=== PATIENT | male | born 1990 | race Caucasian/White ===

== ENCOUNTER 2017-07-10 10:21 | Emergency (ER) | payer OTHER, MEDICAID ==
[2017-07-10 10:35] VITALS: BP 130/81; PULSE 123; RESP 16; O2SAT 93
--- NOTE | 2017-07-10 11:10 | EDPHY ---
H & P Stated Complaint: was at [facility] for med adjustment this am, staff gave pt anx Time Seen by Provider: 07/10/17 11:02 HPI/ROS: CHIEF COMPLAINT: Detox, withdrawal symptoms HISTORY OF PRESENT ILLNESS: This patient is a 26 year old male with history of alcoholism arriving with his mother complaining of alcohol withdrawal symptoms worsening since this morning. He has been drinking heavily for about one year and usually takes 15-18 shots per day throughout the day. He is interested in outpatient rehabilitation and is seen at mental [facility] and has an appointment with addiction specialists next week. He was instructed to decrease by 1/2 shot per day every three days, but he did not want to be drunk for his appointment today, so his last drink was at 5am this morning. Currently, he feels lightheaded and "out of it" and is beginning to feel shaky. He has never been through detox before. He has history of seizures but has not had any seizure activity today. He denies chest pain, shortness of breath, fever, abdominal pain, urinary complaints, or other associated symptoms. REVIEW OF SYSTEMS: A 10 point review of systems was performed and is negative with the exception of the elements mentioned in the history of present illness. - Medical/Surgical History PMH: Alcoholism, seizures, bipolar, schizophrenia. Hx Asthma: No Hx Chronic Respiratory Disease: No Hx Diabetes: No Hx Cardiac Disease: No Hx Renal Disease: No Hx Cirrhosis: No Hx Alcoholism: No Hx HIV/AIDS: No Hx Splenectomy or Spleen Trauma: No Other PMH: pmh:ethism, sichophrenia, bipolar, seizures. psh: - Social History Additional Social History: Mother at bedside. Daily alcohol use. Lives in [place]. - Physical Exam Exam: General Appearance: Alert, no distress Eyes: Pupils equal and round, no conjunctival pallor or injection ENT, Mouth: Mucous membranes moist Neck: Normal inspection Respiratory: Lungs are clear to auscultation Cardiovascular: Regular tachycardia Gastrointestinal: Abdomen is soft and non- tender Neurological: A&O, normal gait, mild resting tremor Skin: Warm and dry, no rash Extremities: Nontender, no pedal edema Psychiatric: Mood and affect normal Constitutional: Initial Vital Signs Heart Rate 123 H 07/10/17 10:24 Respiratory Rate 16 07/10/17 10:24 Blood Pressure 130/81 H 07/10/17 10:24 O2 Sat (%) 93 07/10/17 10:24 O2 Delivery Mode Room Air Allergies/Adverse Reactions: No Known Allergies Allergy (Unverified 06/22/12 15:05) Home Medications: Medication Instructions Recorded Medical Marijuana 05/14/11 Topiramate [Topamax] 50 mg PO BID 05/14/11 OLANZAPINE [ZYPREXA 20 mg] 10 mg PO HS 06/22/12 Ondansetron Odt [Zofran Odt 4 mg 4 mg PO Q4PRN PRN #7 tab 06/22/12 (*)] lamOTRIGine [LamICTAL] 25 mg PO .DAY 06/22/12 Medical Decision Making ED Course/Re-evaluation: 26 y/o male presents with alcohol withdrawal. He is not interested in going to the [facility], and his primary concern today is his withdrawal symptoms. He is comfortable with following a slow taper to decrease his alcohol intake as recommended by [facility]. His mother is at bedside and they are comfortable with him returning to her house after discharge. He plans to continue drinking alcohol as instructed and follow up for his appointment next week to discuss outpatient rehabilitation. Plan to administer 2mg PO Ativan for symptom relief. Plan to discharge home in good condition. He will follow up as discussed above. Return precautions discussed. The patient and his mother are comfortable with this plan. Differential Diagnosis: Differential diagnosis includes but not limited to alcoholic ketoacidosis, delirium tremens, hypoglycemia, dehydration. - Data Points Medications Given: Discontinued Medications Lorazepam (Ativan) 2 mg PO EDNOW ONE Stop: 07/10/17 11:23 Last Admin: 07/10/17 11:35 Dose: 2 mg Departure - Departure Disposition: Home, Routine, Self-Care Clinical Impression: Alcohol withdrawal Qualifiers: Complication of substance-induced condition: uncomplicated Qualified Code(s): F10.230 - Alcohol dependence with withdrawal, uncomplicated Condition: Good Instructions: Alcohol Withdrawal (ED) Additional Instructions: 1. Gradually taper your alcohol intake as previously discussed. 2. Consider following up at the [facility] if desired for assistance in detox prior to your appointment next week. 3. Follow up for your appointment next week as scheduled to discuss outpatient rehabilitation options. 4. Return to the emergency department for seizure, hallucinations, uncontrollable vomiting, or other worsening of condition. Referrals: [facility] [Clinic] - As per Instructions [facility] Detox 24 Hours [Outside] - As per Instructions Report Scribed for: Digna Fermin Report Scribed by: Michelle Schilling Date of Report: 07/10/17 Time of Report: 11:04 Physician Review and Approval Statement: 07/10/17 11:04 Portions of this note were transcribed by a medical affairs manager. I personally performed a history, physical exam, medical decision making, and confirmed accuracy of information the transcribed note.
[2017-07-10] MEDS ORDERED: LORazepam 1 MG TAB PO ONE (11:22)
== END 2017-07-10 12:02 | disposition home or self-care (01) ==
LOC: EDUNIT#
DX: F10.230 Alcohol dependence with withdrawal, uncomplicated (principal)

== ENCOUNTER → 2017-11-20 | Outpatient (CLI) | payer OTHER, MEDICAID | LOC: FIMAGING 12:19 | PROVIDERS: ATTEND Family Medicine Sports Medicine | DX: M25.512 Pain in left shoulder (principal) ==

== ENCOUNTER 2018-03-26 21:11 | Inpatient (IN) | payer OTHER, MEDICAID ==
[2018-03-26] MEDS ORDERED: chlordiazePOXIDE 25 MG CAP ONE (22:18)
[2018-03-26] MEDS ORDERED: LORazepam 1 MG TAB ONE (22:19)
[2018-03-26] MEDS ORDERED: LORazepam 1 MG TAB PO ONE (22:21)
[2018-03-26] MEDS ORDERED: chlordiazePOXIDE 25 MG CAP PO ONE (22:21)
--- NOTE | 2018-03-26 22:22 | EDPHY ---
H & P Stated Complaint: etoh withdrawl, last drink today, anxiety Time Seen by Provider: 03/26/18 22:25 HPI/ROS: HPI CHIEF COMPLAINT: Alcohol withdrawal HISTORY OF PRESENT ILLNESS: This is a 27-year-old male, he has a history of bipolar disorder schizoaffective disorder, daily alcohol use up to 16 shots of vodka per day, additionally anxiety disorder, presents emergency room and alcohol draw. He states his last drink was early this morning but he did take 2 shots of vodka 2:00 p.m. Close he was feeling as if he is going through withdrawal. He is brought to the emergency room by his parents at bedside. He presents stating that he feels very tremulous, is noted that he is tachycardic upon arrival. He is not hallucinating. He denies wanting to hurt himself or anybody else. He denies seeing or hearing anything. He states he feels anxious. Past Medical History: History bipolar disorder, schizoaffective disorder, alcoholism, anxiety disorder Past Surgical History: No recent surgery Social History: Daily alcohol use up to 16 shots of vodka. Family History: Noncontributory ROS REVIEW OF SYSTEMS: A comprehensive 10 point review of systems is otherwise negative aside from elements mentioned in the history of present illness. Exam Constitutional appears nontoxic in no acute distress however noted to be tachycardic at triage triage nursing summary reviewed, vital signs reviewed, awake/alert. Eyes normal conjunctivae and sclera, EOMI, PERRLA. HENT normal inspection, atraumatic, moist mucus membranes, no epistaxis, neck supple/ no meningismus, no raccoon eyes. Respiratory clear to auscultation bilaterally, normal breath sounds, no respiratory distress, no wheezing. Cardiovascular tachycardia, regular rhythm, no murmur, no edema, distal pulses normal. Gastrointestinal soft, non-tender, no rebound, no guarding, normal bowel sounds, no distension, no pulsatile mass. Genitourinary no CVA tenderness. Musculoskeletal no midline vertebral tenderness, full range of motion, no calf swelling, no tenderness of extremities, no meningismus, good pulses, neurovascularly intact. Skin pink, warm, & dry, no rash, skin atraumatic. Neurologic slight tremulous with full extension of the arms, no tongue fasciculations on exam, awake, alert and oriented x 3, AAOx3, moves all 4 extremities equally, motor intact, sensory intact, CN II-XII intact, normal cerebellar, normal vision, normal speech. Psychiatric normal mood/affect. Heme/Lymph/Immune no lymphadenopathy. Differential Diagnosis: Includes but is not limited to in a particular order alcohol withdrawal, electrolyte disturbance, dehydration, anxiety, delirium tremens Medical Decision Making: Plan for this patient IV establishment with IV fluid bolus, basic blood work, p.o. Librium 50 mg, Ativan as needed. CIWA score. Re-evaluation: 2302: Patient re-evaluate still tachycardic at 130s. However feels better after p. O. Ativan and p.o. Librium. Will give 2 mg IV Ativan reassess. 0110: Re-evaluation, patient still tremulous, I did ambulate him and he is very globally shaky. Heart rate noted be in the 130s to 140s. I do not feel safe allowing this patient to go home. At this point do not taking go to detox. I think he will probably need to be admitted for alcohol withdrawal. Spoke with Dr. Vann agrees to admit to SDU. EKG interpretation by me on record in [employer] system. Impression time of EKG 1:16 a.m., sinus tachycardia rate of 128 no signs of acute ischemia no signs of cardiac arrhythmia. Critical Care: Total Critical Care Time Spent Managing this Patient: 80 Minutes. This time was spent Exclusively with this patient. This Care was exclusive of procedures. The Organ System/life at risk was Cardiac, Neurological This Patient was in Critical Condition because Alcohol Withdrawl. Source: Patient - Personal History Current Tetanus/Diphtheria Vaccine: Yes - Medical/Surgical History Hx Asthma: No Hx Chronic Respiratory Disease: No Hx Diabetes: No Hx Cardiac Disease: No Hx Renal Disease: No Hx Cirrhosis: No Hx Alcoholism: No Hx HIV/AIDS: No Hx Splenectomy or Spleen Trauma: No Other PMH: pmh:ethism, sichophrenia, bipolar, seizures, etoh. psh: - Social History Smoking Status: Current every day smoker Constitutional: Initial Vital Signs Temperature (C) 36.8 C 03/26/18 21:36 Heart Rate 140 H 03/26/18 21:36 Respiratory Rate 20 03/26/18 21:36 Blood Pressure 131/69 H 03/26/18 21:36 O2 Sat (%) 97 07/11/18 21:36 O2 Delivery Mode Room Air O2 (L/minute) 2 Allergies/Adverse Reactions: olanzapine [From Zyprexa] Allergy (Verified 03/26/18 21:33) Home Medications: Medication Instructions Recorded Topiramate [Topamax] 50 mg PO BID 05/14/11 Buspar (*) 03/26/18 Gabapentin 03/26/18 Librium 25 mg (*) 03/26/18 Seroquel 03/26/18 Seroquel 03/26/18 Topamax 03/26/18 Medical Decision Making - Data Points Laboratory Results: Laboratory Results 03/26/18 22:10 03/26/18 22:10 03/26/18 03/26/18 03/26/18 22:10 22:10 22:10 WBC 8.59 10^3/uL 10^3/uL (3.80-9.50) RBC 4.69 10^6/uL 10^6/uL (4.40-6.38) Hgb 15.4 g/dL g/dL (13.7-17.5) Hct 42.1 % % (40.0-51.0) MCV 89.8 fL fL (81.5-99.8) MCH 32.8 pg pg (27.9-34.1) MCHC 36.6 g/dL g/dL (32.4-36.7) RDW 13.5 % % (11.5-15.2) Plt Count 144 10^3/uL L 10^3/uL (150-400) MPV 10.0 fL fL (8.7-11.7) Neut % (Auto) 60.5 % % (39.3-74.2) Lymph % (Auto) 27.4 % % (15.0-45.0) [place] % (Auto) 10.9 % % (4.5-13.0) Eos % (Auto) 0.7 % % (0.6-7.6) Baso % (Auto) 0.2 % L % (0.3-1.7) Nucleat RBC Rel Count 0.0 % % (0.0-0.2) Absolute Neuts (auto) 5.19 10^3/uL 10^3/uL (1.70-6.50) Absolute Lymphs (auto) 2.35 10^3/uL 10^3/uL (1.00-3.00) Absolute Monos (auto) 0.94 10^3/uL H 10^3/uL (0.30-0.80) Absolute Eos (auto) 0.06 10^3/uL 10^3/uL (0.03-0.40) Absolute Basos (auto) 0.02 10^3/uL 10^3/uL (0.02-0.10) Absolute Nucleated RBC 0.00 10^3/uL 10^3/uL (0-0.01) Immature Gran % 0.3 % % (0.0-1.1) Immature Gran # 0.03 10^3/uL 10^3/uL (0.00-0.10) Sodium 135 mEq/L mEq/L (135-145) Potassium 3.3 mEq/L mEq/L (3.3-5.0) Chloride 103 mEq/L mEq/L (97-110) Carbon Dioxide 19 mEq/l L mEq/l (22-31) Anion Gap 13 mEq/L mEq/L (8-16) BUN 11 mg/dL mg/dL (7-23) Creatinine 0.8 mg/dL mg/dL (0.7-1.3) Estimated GFR > 60 Glucose 123 mg/dL H mg/dL (70-100) Calcium 9.7 mg/dL mg/dL (8.5-10.4) Magnesium 1.9 mg/dL mg/dL (1.6-2.3) Medications Given: Discontinued Medications Chlordiazepoxide HCl (Librium) 50 mg PO EDNOW ONE Stop: 03/26/18 22:22 Last Admin: 03/26/18 22:23 Dose: 50 mg Sodium Chloride (Ns) 1,000 mls @ 0 mls/hr IV ONCE ONE; Wide Open PRN Reason: Protocol Stop: 03/26/18 22:24 Last Admin: 03/26/18 22:24 Dose: 1,000 mls Sodium Chloride (Ns) 1,000 mls @ 0 mls/hr IV EDNOW ONE; Wide Open PRN Reason: Protocol Stop: 03/26/18 22:25 Last Admin: 03/26/18 22:46 Dose: 1,000 mls Lorazepam (Ativan) 1 mg PO EDNOW ONE Stop: 03/26/18 22:22 Last Admin: 03/26/18 22:23 Dose: 1 mg Lorazepam (Ativan Injection) 2 mg IVP EDNOW ONE Stop: 03/26/18 23:03 Last Admin: 03/26/18 23:24 Dose: 2 mg Lorazepam (Ativan Injection) 1 mg IVP EDNOW ONE Stop: 03/27/18 01:11 Last Admin: 03/27/18 01:30 Dose: Not Given Lorazepam (Ativan Injection) 1 mg IVP EDNOW ONE Stop: 03/27/18 01:13 Last Admin: 03/27/18 01:30 Dose: Not Given Lorazepam (Ativan Injection) 2 mg IVP EDNOW ONE Stop: 03/27/18 01:22 Last Admin: 03/27/18 01:26 Dose: 2 mg Departure - Departure Disposition: [facility] Clinical Impression: Alcohol withdrawal Qualifiers: Complication of substance-induced condition: uncomplicated Qualified Code(s): F10.230 - Alcohol dependence with withdrawal, uncomplicated Condition: Good
[2018-03-26] MEDS ORDERED: NS 1,000 ML IV ONE ×2 (22:23→22:24)
[2018-03-26 22:34] LABS: PLATELET COUNT 144 10^3/uL (150-400)
[2018-03-26] MEDS ORDERED: LORazepam 2 MG/ML INJ IVP ONE (23:02)
[2018-03-27] MEDS ORDERED: LORazepam 2 MG/ML INJ IVP ONE ×5 (01:10→03:23)
--- NOTE | 2018-03-27 01:18 | CPEKG ---
Heart Rate: 128 RR Interval: 469 P-R Interval: 144 QRSD Interval: 92 QT Interval: 316 QTC Interval: 461 P [place]: 51 QRS [place]: 80 T Wave [place]: 6 EKG Severity - BORDERLINE ECG - EKG Impression: SINUS TACHYCARDIA EKG Impression: INFERIOR Q WAVES, PROBABLY NORMAL VARIATION Electronically Signed By: Adam Kruger 27-Mar-2018 07:33:00
[2018-03-27] MEDS ORDERED: LORazepam 2 MG/ML INJ ONE (03:24)
[2018-03-27] MEDS ORDERED: ONDANSETRON 4 MG/2 ML VIAL IVP PRN (03:25)
[2018-03-27] MEDS ORDERED: ACETAMINOPHEN 325 MG TAB PO PRN (03:25)
[2018-03-27] MEDS ORDERED: NS 1,000 ML IV SCH (03:30)
--- NOTE | 2018-03-27 04:03 | PDGENHP ---
History and Physical - Chief Complaint Tremors, withdrawal - History of Present Illness Source-patient provides history appears reliable EMR was reviewed and case discussed with ED provider. HPI-this is a pleasant 27-year-old gentleman with past medical history significant for bipolar disorder, schizoaffective disorder, alcohol dependence who presents to the emergency department today with his parents with concerns for alcohol withdrawal. Patient reports that he has been working with his provider on on a withdrawal treatment plan with use of p.r.n. Librium. Patient' s last oral intake of alcohol was approximately 2:00 p.m. 2 shots vodka. Patient reports that he had previously been cutting back and down to 16 shots on a daily basis. At 1 point recently patient reports that he was up to be 7 shots daily. Patient had not had any alcohol consumption since yesterday morning. He has reported increasing tremulousness generalized weakness and visual hallucinations at home. Currently patient without any reported hallucinations. Patient also reports that he had episode of emesis that was nonbloody. Nausea has resolved. No diarrhea or abdominal pain. No jaundice. His parents assist him in ensuring that he does take his psychiatric medications including gabapentin, Seroquel, buspirone, Topamax. In the emergency department, patient was given IV fluids, Librium, IV Ativan but was noted to have significant tachycardia 120s. This has been stable however when patient was ambulating he had significant difficulties initially as well as of rise in heart rate into the 140s. He has continued to come plane of increased tremulousness. CIWA scores after 50 mg of Librium and total 5 mg of IV Ativan was 8. Given patient's elevated score and tachycardia admission was requested for alcohol withdrawal. History Information - Allergies/Home Medication List Allergies/Adverse Reactions: olanzapine [From Zyprexa] Allergy (Verified 03/26/18 21:33) Home Medications: Topiramate [Topamax] 50 mg PO BID 05/14/11 [Last Taken Unknown] Buspar (*) 03/26/18 [Last Taken Unknown] Gabapentin 03/26/18 [Last Taken Unknown] Librium 25 mg (*) 03/26/18 [Last Taken Unknown] Seroquel 03/26/18 [Last Taken Unknown] Seroquel 03/26/18 [Last Taken Unknown] Topamax 07/11/18 [Last Taken Unknown] I have personally reviewed and updated: family history, medical history, social history, surgical history - Past Medical History Additional medical history: Bipolar disorder, schizoaffective disorder, alcohol dependence - Surgical History Additional surgical history: Adenoidectomy - Family History Additional family history: Paternal grandfather with history of alcohol dependence. Patient reports his father drink a daily glass a wine but has which has since quit a year ago. No other family members with mental health disorders. - Social History Smoking Status: Current every day smoker Tobacco Use: Pipe (At home patient smokes through a large tobacco pipe every 30- 40 minutes.) Alcohol Use: None Drug Use: Marijuana (CBD oral regularly.) Additional social history: Patient lives with his parents. Cor status full. Review of Systems Review of Systems: ROS: 10pt was reviewed & negative except for what was stated in HPI & below Constitutional: Reports: weakness (Generalized) EENMT: Reports: no symptoms Cardiac: Reports: no symptoms Respiratory: Reports: no symptoms Gastrointestinal: Reports: vomitting, nausea. Denies: black stools, rectal bleeding, abdominal pain, diarrhea Genitourinary: Reports: no symptoms Muscolosketal: Reports: no symptoms Skin: Reports: no symptoms Neurological: Reports: emotional problems, tremors, weakness Hematologic/Lymphatic: Reports: no symptoms Physical Exam Physical Exam: Selected Entries 03/26/18 21:36 Blood Pressure Automatic Method Heart Rate 140 H Respiratory 20 Rate O2 Sat (%) 97 Temperature (C) 36.8 C Blood Pressure 131/69 H Mean Arterial 89 Pressure (MAP) O2 Delivery Room Air Mode Temperature Oral Source Temp Pulse Resp BP Pulse Ox 36.8 C 124 H 18 144/76 H 96 03/26/18 21:36 03/27/18 00:00 03/27/18 00:00 03/27/18 00:00 03/27/18 00:00 Constitutional: no apparent distress, appears nourished, not in pain Eyes: PERRL, anicteric sclera, EOMI, other (Horizontal and vertical nystagmus patient reports is chronic) Ears, Nose, Mouth, Throat: no oral mucosal ulcers, dry mucous membranes, other ( No nasal discharge), No poor dentition Cardiovascular: no murmur, rub, or gallop, pulses symmetric bilaterally, tachycardia (Regular rhythm), No edema Peripheral Pulses: 2+: dorsalis-pedis (R), dorsalis-pedis (L) Gastrointestinal: normoactive bowel sounds, soft, non-tender abdomen, No tenderness, No distension Genitourinary: No duarte in urethra Skin: warm, normal color, no rashes or abrasions Musculoskeletal: full muscle strength, no muscle tenderness, other (Patient ambulates minimally unsteady. Does not require assistance. Moves all extremities strength grossly intact.), No generalized weakness Neurologic: AAOx3, CN II-XII Intact, other (Moves all extremities grossly nonfocal exam. Patient with intention tremor on [id number].), No weakness, No facial droop Psychiatric: interacting appropriately, not encephalopathic, thought process linear, anxious, flat affect, other (No AH or VH. No SI or HI.), No depressed, No suicidal ideation, No agitated, No poor insight, No poor judgement, No poor memory Lab Data & Imaging Review 03/26/18 22:10 03/26/18 22:10 WBC 8.59 10^3/uL (3.80-9.50) 03/26/18 22:10 RBC 4.69 10^6/uL (4.40-6.38) 03/26/18 22:10 Hgb 15.4 g/dL (13.7-17.5) 03/26/18 22:10 Hct 42.1 % (40.0-51.0) 03/26/18 22:10 MCV 89.8 fL (81.5-99.8) 03/26/18 22:10 MCH 32.8 pg (27.9-34.1) 03/26/18 22:10 MCHC 36.6 g/dL (32.4-36.7) 03/26/18 22:10 RDW 13.5 % (11.5-15.2) 03/26/18 22:10 Plt Count 144 10^3/uL (150-400) L 03/26/18 22:10 MPV 10.0 fL (8.7-11.7) 03/26/18 22:10 Neut % (Auto) 60.5 % (39.3-74.2) 03/26/18 22:10 Lymph % (Auto) 27.4 % (15.0-45.0) 03/26/18 22:10 [place] % (Auto) 10.9 % (4.5-13.0) 03/26/18 22:10 Eos % (Auto) 0.7 % (0.6-7.6) 03/26/18 22:10 Baso % (Auto) 0.2 % (0.3-1.7) L 03/26/18 22:10 Nucleat RBC Rel Count 0.0 % (0.0-0.2) 03/26/18 22:10 Absolute Neuts (auto) 5.19 10^3/uL (1.70-6.50) 03/26/18 22:10 Absolute Lymphs (auto) 2.35 10^3/uL (1.00-3.00) 03/26/18 22:10 Absolute Monos (auto) 0.94 10^3/uL (0.30-0.80) H 03/26/18 22:10 Absolute Eos (auto) 0.06 10^3/uL (0.03-0.40) 03/26/18 22:10 Absolute Basos (auto) 0.02 10^3/uL (0.02-0.10) 03/26/18 22:10 Absolute Nucleated RBC 0.00 10^3/uL (0-0.01) 03/26/18 22:10 Immature Gran % 0.3 % (0.0-1.1) 03/26/18 22:10 Immature Gran # 0.03 10^3/uL (0.00-0.10) 03/26/18 22:10 Sodium 135 mEq/L (135-145) 03/26/18 22:10 Potassium 3.3 mEq/L (3.3-5.0) 03/26/18 22:10 Chloride 103 mEq/L (97-110) 03/26/18 22:10 Carbon Dioxide 19 mEq/l (22-31) L 03/26/18 22:10 Anion Gap 13 mEq/L (8-16) 03/26/18 22:10 BUN 11 mg/dL (7-23) 03/26/18 22:10 Creatinine 0.8 mg/dL (0.7-1.3) 03/26/18 22:10 Estimated GFR > 60 03/26/18 22:10 Glucose 123 mg/dL (70-100) H 03/26/18 22:10 Calcium 9.7 mg/dL (8.5-10.4) 03/26/18 22:10 Magnesium 1.9 mg/dL (1.6-2.3) 03/26/18 22:10 Assessment & Plan Assessment: 27-year-old gentleman who presents with complaints of tremors and generalized weakness due to alcohol withdrawal. Alcohol withdrawal (Acute) - patient continues to have tachycardia into the 120s. CIWA scores 8. He appears to be responding appropriately to Librium scheduled and Ativan. Plan to continue him on the CIWA protocol. Thrombocytopenia-mild likely related to patient's history of alcohol use. Chronic medical issues - will plan to resume patient's psychiatric medications. Bipolar disorder Schizoaffective disorder Anxiety FEN - IV fluid supplementation overnight. Electrolyte monitoring replacement if needed. Diet as tolerated. Cor status-full PPX-SCDs. Patient overall is low risk. He is currently ambulating with improvement. Will encourage mobilization. Consider Lovenox if patient is should stay additional days. Disposition- patient admitted inpatient status on the medical floor with remote telemetry and pulse ox monitoring in setting of elevated CIWA scores and tachycardia. Anticipate greater than 2 midnight stay pending response to benzo treatment.
[2018-03-27] MEDS: chlordiazePOXIDE 25 MG CAP PO SCH ×4 (04:30→21:12)
[2018-03-27] MEDS: LORazepam 2 MG/ML INJ IVP PRN ×4 (04:30→15:44)
[2018-03-27] MEDS: THIAMINE HCL 100 MG TAB PO SCH ×2 (04:30→08:52)
[2018-03-27 08:51] LABS: INR 0.91 (0.83-1.16); PROTIME(PATIENT) 12.5 SEC (12.0-15.0)
[2018-03-27] MEDS: FOLIC ACID 1 MG TAB PO SCH (08:52)
[2018-03-27] MEDS: MULTIVITAMINS 1 EACH TAB PO SCH (08:52)
[2018-03-27] MEDS ORDERED: NICOTINE POLACRILEX 2 MG GUM B PRN (09:01)
[2018-03-27] MEDS ORDERED: QUEtiapine FUMARATE 25 MG TAB PO PRN (10:04)
[2018-03-27] MEDS ORDERED: IBUPROFEN 200 MG TAB PO PRN (10:04)
[2018-03-27] MEDS: busPIRone 10 MG TAB PO SCH ×2 (10:34→21:12)
[2018-03-27] MEDS: GABAPENTIN 300 MG CAP PO SCH ×3 (10:34→21:12)
[2018-03-27] MEDS: TOPIRAMATE 25 MG TAB PO SCH ×2 (10:41→21:11)
[2018-03-27] MEDS: NICOTINE 21 MG/24 HR PATCH TD SCH (10:41)
--- NOTE | 2018-03-27 12:48 | HOSPPROG ---
Hospitalist Progress Note Assessment/Plan: Patient is a 27-year-old male with a history bipolar disorder, schizoaffective disorder and alcohol dependence. He presented the emergency room with his parents out of concerns of alcohol withdrawal. He has been working with his primary care provider and was using Librium p.r.n.. He was admitted earlier by Dr Vann, I came by to follow up with him. Alcohol withdrawal (Acute) - CIWA scores was elevated @ 8. -cont CIWA protocol Thrombocytopenia-mild - related to patient's history of alcohol use. Tachycardia -from withdrawal Nicotine dependence -patch ordered Bipolar disorder -home meds resumed Schizoaffective disorder -home meds Anxiety Plan: continue IP status for ongoing withdrawals, patient wants help and is fine with staying to get treatment. Subjective: Mark has no complaints. Objective: Vital Signs Temp Pulse Resp BP Pulse Ox 36.7 C 117 H 16 133/83 H 91 L 03/27/18 11:47 03/27/18 11:47 03/27/18 11:47 03/27/18 11:47 03/27/18 11:47 Laboratory Results 03/27/18 08:34 03/26/18 03/27/18 03/28/18 05:59 05:59 05:59 Intake Total 2300 Output Total 550 Balance 2300 -550 PT 12.5 SEC (12.0-15.0) 03/27/18 08:34 INR 0.91 (0.83-1.16) 03/27/18 08:34 - Physical Exam Constitutional: no apparent distress, appears nourished, not in pain Eyes: PERRL Ears, Nose, Mouth, Throat: hearing normal Cardiovascular: regular rate and rhythym, tachycardia Respiratory: no respiratory distress Skin: warm Musculoskeletal: full muscle strength Neurologic: AAOx3 Psychiatric: flat affect ICD10 Worksheet Patient Problems: Problems Problem Status Onset Alcohol withdrawal Acute
--- NOTE | 2018-03-27 14:42 | ASMTCMCOM ---
CM Note CM Note Notes: Pt was brought in by his parents for alcohol withdrawl. He has a hx of bipolar and schizoaffective disorder, pt lives with his parents. Dc needs unclear but will probably be independent, CM available for any changes. DC Plan: Independent Date Signed: 03/27/2018 02:41 PM Electronically Signed By:Valentina Mitchell RN
[2018-03-27] MEDS ORDERED: CEPACOL LOZENGE PO PRN (17:15)
[2018-03-27] MEDS ORDERED: QUEtiapine FUMARATE 100 MG TAB PO SCH (21:00)
[2018-03-28] MEDS ORDERED: CEPACOL LOZENGE PO PRN (05:20)
[2018-03-28 07:40] VITALS: BP 119/89
[2018-03-28] MEDS: MULTIVITAMINS 1 EACH TAB PO SCH (08:04)
[2018-03-28] MEDS: NICOTINE 21 MG/24 HR PATCH TD SCH (08:04)
[2018-03-28] MEDS: THIAMINE HCL 100 MG TAB PO SCH (08:04)
[2018-03-28] MEDS: chlordiazePOXIDE 25 MG CAP PO SCH (08:04)
[2018-03-28] MEDS: busPIRone 10 MG TAB PO SCH (08:04)
[2018-03-28] MEDS: GABAPENTIN 300 MG CAP PO SCH (08:04)
[2018-03-28] MEDS: TOPIRAMATE 25 MG TAB PO SCH (08:05)
[2018-03-28] MEDS: FOLIC ACID 1 MG TAB PO SCH (08:05)
[2018-03-28] MEDS ORDERED: FLUTICASONE NASAL 120 SPRAYS/16 GM MDI EACHNARE SCH (09:00)
[2018-03-28] MEDS ORDERED: MULTIVITAMINS 1 EACH TAB PO SCH (09:00)
--- NOTE | 2018-03-28 10:12 | ASMTLACE ---
DREW Length of stay for Answers: 1 day current admission Acuity / Level of Answers: Yes Care: Did the patient have an inpatient admission? # of Emergency department Answers: 1-2 visits in the last 6 months Social determinants Answers: History of substance abuse (ETOH, street drugs, prescription drugs, etc.) Mental health diagnosis (anxiety, depression, pers onality disorders, etc.) Score: 11 Date Signed: 03/28/2018 10:11 AM Electronically Signed By:Valentina Mitchell RN
--- NOTE | 2018-03-28 10:22 | ASMTCMCOM ---
CM Note CM Note Notes: Spoke w/pt re, etoh resources. Pt states he started drinking after his parents left for a weekend away and his drinking was part out of boredom and feeling a little isolated. We discussed meeting with his pillowcase cleaner Joaquín at [facility] on a more frequent basis to work on strategies for coping instead of drinking. Pt says he would like to return to school to pursue an astronomy degree, he is just shy of getting his associates and would like to transfer to . He also knows there is an addiction group starting in April through [facility] but accepted the ETOH resource packet. Pt is discharging back to his parents home, they will come and pick him up. DC Plan: Independent Date Signed: 03/28/2018 10:21 AM Electronically Signed By:Valentina Mitchell RN
--- NOTE | 2018-03-28 11:51 | PDMN ---
Medical Necessity Medical necessity: est los>2mn for etoh withdrawal w/tremors, weakness, HR 120's ; requires CIWA, IVF, tele, continuous pulse ox, and benzo's; comorbid bipolar, schizoaffective disorder and anxiety; per order and H&P 03/27/18
--- NOTE | 2018-03-28 19:36 | GDS ---
[f rep st] DISCHARGE SUMMARY DISCHARGE DIAGNOSES: 1. Alcohol withdrawal, mild. 2. Bipolar disorder. 3. Schizoaffective disorder. 4. Mild thrombocytopenia, likely secondary to alcohol abuse. 5. History of alcohol abuse. CONSULTANTS: None. HISTORY: For details, please see the history and physical dated March 27, 2018. In brief, Mr. Sterling is a 27-year-old male with a known mental health disorder who has been drinking very heavy alcohol, reportedly up to 16 shots a day for the past 6 weeks. His parents brought him to the emergency depar tment when they noticed tremor and he was admitted for alcohol withdrawal management. HOSPITAL COURSE: Patient admitted to the Medical/Surgical unit. His CIWA score was 8 on arrival. Maria Del Carmen e was tachycardic into the 120s. He received IV fluids and was treated with scheduled Librium as wel l as p.r.n. Ativan. The following morning, his condition was significantly improved. His CIWA score was 0 to 2 overnight. He overall feels better. He has no more tremor and wishes discharge home. We discussed 3 more days of outpatient Librium therapy and a taper is prescribed. I recommend he roque e close followup with both his primary care as well as [facility]. In addition, our Soci al Worker discussed a sobriety plan with the patient prior to discharge and provided alcohol resource s. He will meet with his jelly maker, Joaquín, at [facility] to work on strategies for copin g other than alcohol abuse. An alcohol resource packet was provided. DISPOSITION: Patient was discharged home in stable condition. FOLLOWUP: 1. Dr. Jacek Rodgers, primary care. 2. [facility]. DISCHARGE MEDICATIONS: Please see [facility] completed outpatient medication list. New medications on discharge include: 1. Librium 50 mg p.o. 3 times daily for 1 day, then 25 mg p.o. 3 times daily for 1 day, then 25 mg p .o. twice daily for 1 day, then off. 2. Pepcid 20 mg p.o. twice daily, #60, no refills. 3. Folic acid 1 mg p.o. daily. He will continue all other outpatient medications as previously prescribed includin. Topamax 50 mg p.o. twice daily. 2. Seroquel 25 mg p.o. at bedtime p.r.n., along with Seroquel 100 mg p.o. at bedtime. 3. Gabapentin 600 mg p.o. 3 times daily. 4. Buspirone 10 mg p.o. twice daily. 5. Multivitamin. 6. Nasacort. Discontinued medications include ibuprofen, which I recommend he hold for the time being given his po ssible acid reflux symptoms in the setting of alcohol abuse. /[id number]/MODL
== END 2018-03-28 10:46 | disposition home or self-care (01) | DRG 897 ==
LOC: F3E 03-27 04:13
PROVIDERS: ADMIT Family Medicine; ATTEND Family Medicine
DX: F10.231 Alcohol dependence with withdrawal delirium (principal); R00.0 Tachycardia, unspecified; F31.9 Bipolar disorder, unspecified; F20.9 Schizophrenia, unspecified; D69.6 Thrombocytopenia, unspecified; F17.290 Nicotine dependence, other tobacco product, uncomplicated
CPT/HCPCS: 96374; J2060

== ENCOUNTER 2018-05-20 09:07 | Emergency (ER) | payer OTHER, MEDICAID ==
[2018-05-20] MEDS ORDERED: FOLIC ACID 1 MG TAB PO ONE (09:50)
[2018-05-20] MEDS ORDERED: THIAMINE HCL 100 MG TAB PO ONE (09:50)
[2018-05-20] MEDS ORDERED: NS 1,000 ML IV ONE (09:50)
--- NOTE | 2018-05-20 09:50 | EDPHY ---
General - History Smoking Status: Current every day smoker Time Seen by Provider: 05/20/18 09:34 Narrative: CHIEF COMPLAINT: Alcohol detoxication HISTORY OF PRESENT ILLNESS: Patient presents with complaints of wanting alcohol detoxification. He states that he drinks approximately 20 1.5oz shots of vodka every 24 hr. Last intake was earlier this morning as below. He states that he is not feeling shaky, hallucinating, vomiting or has any complaints of pain. He is only here requesting inpatient detoxification. He states that he has had poor results with home therapy, arc therapy, and "really did not like [place]."He has no other complaints other than wanting detoxification. He presents with his mother bedside who was an R N. No other associated complaints or modifying factors REVIEW OF SYSTEMS: 10 systems were reviewed and negative with the exception of the elements mentioned in the history of present illness. PCP: Jacek Rodgers SPECIALISTS: No recent specialist. PAST MEDICAL HISTORY: Schizophrenia, bipolar disorder, epilepsy, alcohol dependency PAST SURGICAL HISTORY: No recent surgeries SOCIAL HISTORY: Heavy alcohol intake from vodka. Approximately 20 shots, 1.5 and oz per day. Last intake 1 hr ago, 2 shots. Two shots at 6:00 a.m., 2 shots at 3:00 a.m.. FAMILY HISTORY: Noncontributory EXAMINATION: General Appearance: Alert, no distress Head: normocephalic, atraumatic Eyes: Pupils equal and round, no conjunctival pallor or injection ENT, Mouth: Mucous membranes moist Neck: Normal inspection, supple, non-tender Respiratory: Lungs are clear to auscultation Cardiovascular: Regular rate and rhythm Gastrointestinal: Abdomen is soft and nontender Back: non-tender, no bony abnormalities Neurological: GCS 15. A&O, nonfocal, normal gait. No tremor. Normal finger-to -nose. No pronator drift. Normal mentation Skin: Warm and dry, no rash Extremities: Nontender, no pedal edema Psychiatric: Mood and affect normal DIFFERENTIAL DIAGNOSES: Including but not limited to acute alcohol intoxication, chronic alcohol dependency, delirium tremens, alcohol withdrawal MDM: 9:50 a.m. Alcohol dependency with request for detoxification with no evidence of withdrawal at this time. He has had multiple shots of alcohol over the past 5 hr. He is awake and alert no acute distress. There is no delirium tremens. No encephalopathy. No tremor. I have ordered laboratory studies and will provide IV fluid as he is mildly tachycardic. manager orange will be involved. 10:50 a.m. Laboratory studies are within normal limits. I will discuss again with case management. 11:50 a.m. Patient has been visited by case management. She is offered multiple resources for the patient, all of which she has declined. He exhibits no signs of withdrawal, and certainly no signs of delirium tremens. He is requesting that he go home with outpatient therapy. His mother is an RN and is at bedside. She has done this before in the with some success. I discussed that I am comfortable with providing short course of Librium, but that he will need further management and supervision or successful detoxification. We discussed contacting primary care physician. We discussed ED precautions and he is discharged home stable condition. SUPERVISION: Patient was independently examined, but I discussed the case with my secondary supervising physician Dr. Tompkins CONSULTATION: None (Santhosh Dickey) The patient was evaluated and managed by the physician histology assistant. I have reviewed this chart and I agree with the findings and plan of care as documented , as indicated by my signature. I am the secondary supervising physician. ( Devi Tompkins) - Objective Vital Signs: Initial Vital Signs Temperature (C) 36.9 C 05/20/18 09:11 Heart Rate 129 H 05/20/18 09:11 Respiratory Rate 18 05/20/18 09:11 Blood Pressure 114/72 05/20/18 09:11 O2 Sat (%) 94 05/20/18 09:11 O2 Delivery Mode Room Air Allergies/Adverse Reactions: olanzapine [From Zyprexa] Allergy (Verified 05/20/18 09:09) Itching Home Medications: Medication Instructions Recorded Gabapentin [Neurontin 300 MG (*)] 600 mg PO TID 03/26/18 QUEtiapine FUMARATE [Seroquel 100 100 mg PO HS 03/26/18 mg (*)] QUEtiapine FUMARATE [Seroquel 25 25 mg PO HS PRN 03/26/18 mg (*)] Topiramate [Topamax 25MG (*)] 50 mg PO BID 03/26/18 busPIRone [Buspar (*)] 10 mg PO BID 03/26/18 Herbals/Supplements -Info Only 1 ea PO DAILY 03/27/18 Multivitamins [Multivitamin (*)] 1 each PO DAILY 03/27/18 Triamcinolone Acetonide [Nasacort] 1 spray NS DAILY 03/27/18 Famotidine [Pepcid 20 MG (*)] 20 mg PO BID #60 tab 03/28/18 Folic Acid [Folic Acid 1 MG (*)] 1 mg PO DAILY tab 03/28/18 chlordiazePOXIDE [Librium 25 mg 25 mg PO AD #9 cap 05/20/18 (*)] Laboratory Results: Laboratory Results 05/20/18 09:50 05/20/18 09:50 Medications Given: Discontinued Medications Folic Acid (Folic Acid) 1 mg PO EDNOW ONE Stop: 05/20/18 09:51 Last Admin: 05/20/18 09:58 Dose: 1 mg Sodium Chloride (Ns) 1,000 mls @ 0 mls/hr IV EDNOW ONE; Wide Open PRN Reason: Protocol Stop: 05/20/18 09:51 Last Admin: 05/20/18 09:57 Dose: 1,000 mls Thiamine HCl (Vitamin B-1) 100 mg PO EDNOW ONE Stop: 05/20/18 09:51 Last Admin: 05/20/18 09:57 Dose: 100 mg Departure - Departure Disposition: Home, Routine, Self-Care Clinical Impression: Alcohol dependence Condition: Good Instructions: Chlordiazepoxide/Clidinium (By mouth), Chlordiazepoxide (By mouth ), Alcohol Dependence (ED) Additional Instructions: 1. Librium taper as prescribed. Do not mix this with alcohol 2. Contact primary care physician for further assistance for inpatient care 3. We have offered multiple resources that you have declined. Please consider further and follow up with primary care physician should you change her mind 4. ED precautions for seizure or significant withdrawal symptoms as discussed Referrals: Jacek Rodgers MD [Primary Care Provider] - As per Instructions [facility],. [Clinic] - As per Instructions Prescriptions: chlordiazePOXIDE [Librium 25 mg (*)] 25 mg PO AD #9 cap
[2018-05-20 09:59] LABS: PLATELET COUNT 180 10^3/uL (150-400)
[2018-05-20 12:20] VITALS: BP 127/74
--- NOTE | 2018-05-20 17:30 | ASMTCMCOM ---
CM Note CM Note Notes: Pt presented to the ED requesting assistance w/ETOH detox. Initially pt was stating he was interested in inpatient acute medical detox but stated he did not want to go to the local detox center ([facility] - [facility]) and also did not want to go to [facility]. Pt reportedly was at [facility] this past weekend but left because they weren't giving him his psychiatric medications (he states they weren't able to due to the holiday). Pt has a history of schizoaffective and bipolar disorder. Pt is followed at [facility], his therapist is Joaquín and his psychiatrist is Dr. Chang. Pt states [facility] has provided him with prescriptions for Librium (pt reports he needs much larger doses more often than detox protocols) in the past but that they will no longer be doing so. Pt had an appt w/Joaquín today but canceled when he came to the ED. This CM was going to send a referral to [facility] but then patient decided he did not want to go inpatient ("I haven't had success w/inpatient, I'm more successful outpatient") and rather just get Librium to go home w/his mom, Khadijah, who is at bedside and is an RN; she states she feels comfortable with this plan. The ED provider is agreeable to this plan but has informed the patient and Khadijah that the ED will not provide Librium rxns for him to go home with again in the future. If pt returns and wants help with detox, his local options are: [facility] (in that case the ED would provide a pre-pack of Librium for detox staff to administer), [facility] or [facility]. Pt states he doesn't go to AA or [facility] meetings because he "doesn't like their structure." Pt states he engages with [employer], an online platform. Pt has been through various rehab programs in the past. Pt has tried natrexone treatment and P has discussed Vivitrol and campral. This CM provided pt and his mom with numerous and various resources (acute med detox, IOP, OP, support groups, etc). Pt recommended to follow up with [facility] and w/his PCP Dr Rodgers. CM available for further assistance if needed. Date Signed: 05/20/2018 05:29 PM Electronically Signed By:Dang Dooley RN
== END 2018-05-20 12:18 | disposition home or self-care (01) ==
DX: F10.120 Alcohol abuse with intoxication, uncomplicated (principal); E86.9 Volume depletion, unspecified; Y90.8 Blood alcohol level of 240 mg/100 ml or more
CPT/HCPCS: 80305; G0480

== ENCOUNTER 2018-05-24 13:12 | Inpatient (IN) | payer OTHER, MEDICAID ==
--- NOTE | 2018-05-24 13:40 | EDPHY ---
General - History Smoking Status: Current every day smoker Time Seen by Provider: 05/24/18 13:29 Narrative: CHIEF COMPLAINT: "withdrawing from alcohol" HISTORY OF PRESENT ILLNESS: Patient presents by EMS and is seen at time of arrival. He complains of "I am withdrawing from alcohol."He reports daily ingestion of approximately 20-25 oz of vodka. He reports last intake 1-2 hr ago. He says he has felt tremulous, confused, disoriented and has some difficulty ambulating. He has no chest pain. No shortness of breath. No vomiting. No visual disturbance. I have recently evaluated the patient for the same several days ago. Since that time, he reports increasing his alcohol intake and then rapidly decreasing over the past 24 hr. He states that he did not take the liver that was prescribed from. No other associated complaints or modifying factors. REVIEW OF SYSTEMS: 10 systems were reviewed and negative with the exception of the elements mentioned in the history of present illness. PCP: Dr. Rodgers SPECIALISTS: Psychiatry PAST MEDICAL HISTORY: Bipolar disorder, schizophrenia, alcohol dependency, epilepsy PAST SURGICAL HISTORY: No recent surgical history SOCIAL HISTORY: Nonsmoker. Daily ingestion of alcohol, 20-25 oz of vodka. Denies illicit substance use FAMILY HISTORY: Noncontributory EXAMINATION: General Appearance: Alert, no distress. Nontoxic Head: normocephalic, atraumatic Eyes: Pupils equal and round, no conjunctival pallor or injection. EOM symmetric. No nystagmus. ENT, Mouth: Mucous membranes moist. Airway widely patent Neck: Normal inspection, supple, non-tender Respiratory: Lungs are clear to auscultation Cardiovascular: Tachycardic rate. Regular rhythm. Gastrointestinal: Abdomen is soft and nontender Back: non-tender, no bony abnormalities Neurological: GCS 15. A&O, nonfocal. Normal, steady gait. Normal finger-to- nose. No pronator drift. Skin: Warm and dry, no rash Extremities: Nontender, no pedal edema Psychiatric: Mood and affect normal DIFFERENTIAL DIAGNOSES: Including but not limited to acute alcohol intoxication, alcohol dependency, alcohol withdrawal, delirium tremens. MDM: 1:45 p.m. Patient complains of alcohol withdrawal, with typical ingestion of 20 shots of vodka per day. Reports significantly decreased intake over the past 24 hr. He reports feeling shaky, confused, sweaty, and reports difficulty ambulating due to symptoms. I do not appreciate any seizure like activity during my examination. He is tremulous. He is tachycardic. He is not febrile. I do not think that the patient is in delirium tremens. I have ordered the all withdrawal protocol, EKG, athletic monitor, give fluids, IV Ativan and we will monitor. 2:30 p.m. Laboratory studies are within normal limits. There is no ketoacidosis. Alcohol level is 300. His drug screen is negative. I discussed with Dr. Fermin I will consult case management for assistance with disposition. I do not feel he warrants admission to the hospital at this time he [facility]. 3:40 p.m. Notified by RN that the patient's of the has continued to increase. He initially decreased 1st Ativan, but now increasing. Repeat CIWA is 5-6, heart rate is 145. He remains awake alert. No encephalopathy. No fever. At this point Dr. Fermin will examine the patient. I have ordered additional dose of Ativan and 2nd L IV fluid. 3:50 p.m. Patient has been evaluated by attending physician Dr. Fermin. She agrees patient will not need admission to the hospital. Heart rate remains tachycardic in the 120s to 130s. He remains on the alcohol withdrawal protocol. I will discuss with hospitalist. 4:10 p.m. Case discussed with Dr. Krishna. She will admit the patient to her service. She requested step-down bed. The patient remains on athletic monitor on the alcohol withdrawal protocol. He remains awake alert. Non cephalopathy. No distress but he is tachycardic. SUPERVISION: Patient was evaluated in conjunction with Dr. Fermin. We have both examined and evaluated the patient. CONSULTATION: Hospitalist admission (Santhosh Dickey) Discussion: This patient was seen and examined by me. He presents with tachycardia, tremulousness and signs of alcohol withdrawal. On exam, cardiovascular: Regular tachycardia, lungs are clear to auscultation, mild tremulousness. Alcohol level is elevated, though I suspect that he is detoxing from alcohol as he drinks an excessive amount alcohol throughout the day. He feels somewhat better after IV fluids and Ativan. However I do not feel that he is going to be able to undergo alcohol detox on his own. I agree with Santhosh said assessment and feels that he should be admitted to the hospital. (Digna Fermin ) - Objective Vital Signs: Initial Vital Signs Temperature (C) 36.9 C 05/24/18 13:29 Heart Rate 114 H 05/24/18 13:29 Respiratory Rate 18 05/24/18 13:29 Blood Pressure 128/95 H 05/24/18 13:29 O2 Sat (%) 93 05/24/18 13:29 O2 Delivery Mode Room Air Allergies/Adverse Reactions: olanzapine [From Zyprexa] Allergy (Verified 05/20/18 09:09) Itching Home Medications: Medication Instructions Recorded Gabapentin [Neurontin 300 MG (*)] 600 mg PO TID 03/26/18 QUEtiapine FUMARATE [Seroquel 100 100 mg PO HS 03/26/18 mg (*)] QUEtiapine FUMARATE [Seroquel 25 25 mg PO HS PRN 03/26/18 mg (*)] Topiramate [Topamax 25MG (*)] 50 mg PO BID 03/26/18 busPIRone [Buspar (*)] 10 mg PO BID 03/26/18 Triamcinolone Acetonide [Nasacort] 1 spray NS DAILY 03/27/18 Laboratory Results: Laboratory Results 05/24/18 14:02 05/24/18 14:02 05/24/18 05/24/18 05/24/18 14:02 14:02 14:02 WBC 6.28 10^3/uL 10^3/uL (3.80-9.50) RBC 5.25 10^6/uL 10^6/uL (4.40-6.38) Hgb 16.8 g/dL g/dL (13.7-17.5) Hct 47.3 % % (40.0-51.0) MCV 90.1 fL fL (81.5-99.8) MCH 32.0 pg pg (27.9-34.1) MCHC 35.5 g/dL g/dL (32.4-36.7) RDW 13.1 % % (11.5-15.2) Plt Count 162 10^3/uL 10^3/uL (150-400) MPV 9.6 fL fL (8.7-11.7) Neut % (Auto) 48.9 % % (39.3-74.2) Lymph % (Auto) 39.0 % % (15.0-45.0) [place] % (Auto) 10.2 % % (4.5-13.0) Eos % (Auto) 1.1 % % (0.6-7.6) Baso % (Auto) 0.5 % % (0.3-1.7) Nucleat RBC Rel Count 0.0 % % (0.0-0.2) Absolute Neuts (auto) 3.07 10^3/uL 10^3/uL (1.70-6.50) Absolute Lymphs (auto) 2.45 10^3/uL 10^3/uL (1.00-3.00) Absolute Monos (auto) 0.64 10^3/uL 10^3/uL (0.30-0.80) Absolute Eos (auto) 0.07 10^3/uL 10^3/uL (0.03-0.40) Absolute Basos (auto) 0.03 10^3/uL 10^3/uL (0.02-0.10) Absolute Nucleated RBC 0.00 10^3/uL 10^3/uL (0-0.01) Immature Gran % 0.3 % % (0.0-1.1) Immature Gran # 0.02 10^3/uL 10^3/uL (0.00-0.10) Sodium 146 mEq/L H mEq/L (135-145) Potassium 3.9 mEq/L mEq/L (3.3-5.0) Chloride 107 mEq/L mEq/L (97-110) Carbon Dioxide 23 mEq/l mEq/l (22-31) Anion Gap 16 mEq/L mEq/L (8-16) BUN 8 mg/dL mg/dL (7-23) Creatinine 0.8 mg/dL mg/dL (0.7-1.3) Estimated GFR > 60 Glucose 122 mg/dL H mg/dL (70-100) Calcium 9.8 mg/dL mg/dL (8.5-10.4) Magnesium 2.3 mg/dL mg/dL (1.6-2.3) Total Bilirubin 0.5 mg/dL mg/dL (0.1-1.4) Conjugated Bilirubin 0.2 mg/dL mg/dL (0.0-0.5) Unconjugated Bilirubin 0.3 mg/dL mg/dL (0.0-1.1) AST 82 IU/L H IU/L (17-59) ALT 95 IU/L H IU/L (21-72) Alkaline Phosphatase 93 IU/L IU/L (38-126) Total Protein 7.5 g/dL g/dL (6.3-8.2) Albumin 4.8 g/dL g/dL (3.5-5.0) Urine Opiates Screen Urine Barbiturates Ur Phencyclidine Scrn Ur Amphetamine Screen U Benzodiazepines Scrn Urine Cocaine Screen U Marijuana (THC) Screen Ethyl Alcohol 292 mg/dL H mg/dL (0-10) 05/24/18 13:55 WBC RBC Hgb Hct MCV MCH MCHC RDW Plt Count MPV Neut % (Auto) Lymph % (Auto) [place]wall % (Auto) Eos % (Auto) Baso % (Auto) Nucleat RBC Rel Count Absolute Neuts (auto) Absolute Lymphs (auto) Absolute Monos (auto) Absolute Eos (auto) Absolute Basos (auto) Absolute Nucleated RBC Immature Gran % Immature Gran # Sodium Potassium Chloride Carbon Dioxide Anion Gap BUN Creatinine Estimated GFR Glucose Calcium Magnesium Total Bilirubin Conjugated Bilirubin Unconjugated Bilirubin AST ALT Alkaline Phosphatase Total Protein Albumin Urine Opiates Screen NEGATIVE (NEGATIVE) Urine Barbiturates NEGATIVE (NEGATIVE) Ur Phencyclidine Scrn NEGATIVE (NEGATIVE) Ur Amphetamine Screen NEGATIVE (NEGATIVE) U Benzodiazepines Scrn NEGATIVE (NEGATIVE) Urine Cocaine Screen NEGATIVE (NEGATIVE) U Marijuana (THC) Screen NEGATIVE (NEGATIVE) Ethyl Alcohol Medications Given: Buspirone HCl (Buspar) 10 mg PO BID ANA Stop: 11/20/18 20:59 Last Admin: 05/24/18 21:02 Dose: 10 mg Fluticasone Propionate (Flonase Nasal [place]) 1 sprays EACHNARE DAILY ANA Stop: 11/21/18 08:59 Last Admin: 05/24/18 20:32 Dose: 1 spray Gabapentin (Neurontin) 600 mg PO TID ANA Stop: 11/20/18 21:59 Last Admin: 05/24/18 21:02 Dose: 600 mg Sodium Chloride (1/2 Ns) 1,000 mls @ 125 mls/hr IV CONT ANA Stop: 11/20/18 16:29 Last Admin: 05/24/18 17:39 Dose: 1,000 mls Thiamine HCl 500 mg/ Sodium (Chloride) 105 mls @ 210 mls/hr IV DAILY ANA Stop: 05/26/18 09:29 Last Admin: 05/24/18 17:49 Dose: 105 mls Lorazepam (Ativan Injection) 0 mg IVP Q1H PRN; Protocol PRN Reason: Alcohol Withdrawal w/IV access Stop: 11/20/18 17:03 Last Admin: 05/24/18 17:28 Dose: 2 mg Nicotine (Nicoderm Cq) 21 mg TD DAILY ANA Stop: 11/20/18 17:29 Last Admin: 05/24/18 17:34 Dose: 21 mg Ondansetron HCl (Zofran) 4 mg IVP Q4HRS PRN PRN Reason: Nausea/Vomiting, Can't Take PO Stop: 11/20/18 16:22 Last Admin: 05/24/18 20:28 Dose: 4 mg Quetiapine Fumarate (Seroquel) 100 mg PO HS [facility] Stop: 11/20/18 20:59 Last Admin: 05/24/18 21:03 Dose: 100 mg Topiramate (Topamax) 50 mg PO BID ANA Stop: 11/20/18 20:59 Last Admin: 05/24/18 21:04 Dose: 50 mg Discontinued Medications Sodium Chloride (Ns) 1,000 mls @ 0 mls/hr IV EDNOW ONE; Wide Open PRN Reason: Protocol Stop: 05/24/18 13:50 Last Admin: 05/24/18 14:02 Dose: 1,000 mls Sodium Chloride (Ns) 1,000 mls @ 0 mls/hr IV EDNOW ONE; Wide Open PRN Reason: Protocol Stop: 05/24/18 15:41 Last Admin: 05/24/18 15:49 Dose: 1,000 mls Lorazepam (Ativan Injection) 0 mg IVP Q1H PRN; Protocol PRN Reason: Alcohol Withdrawal w/IV access Stop: 05/25/18 01:42 Last Admin: 05/24/18 20:28 Dose: 2 mg Lorazepam (Ativan Injection) 1 mg IVP EDNOW ONE Stop: 05/24/18 15:45 Last Admin: 05/24/18 15:49 Dose: 1 mg Departure - Departure Disposition: [facility] Clinical Impression: Alcohol dependence Qualifiers: Substance use status: uncomplicated Qualified Code(s): F10.20 - Alcohol dependence, uncomplicated Alcohol withdrawal without perceptual disturbances Qualifiers: Complication of substance-induced condition: uncomplicated Qualified Code(s): F10.230 - Alcohol dependence with withdrawal, uncomplicated Condition: Fair
[2018-05-24] MEDS ORDERED: LORazepam 1 MG TAB PO PRN ×2 (13:42→17:04)
[2018-05-24] MEDS ORDERED: NS 1,000 ML IV ONE ×2 (13:49→15:40)
[2018-05-24] MEDS: LORazepam 2 MG/ML INJ IVP PRN ×5 (14:02→23:27)
[2018-05-24 14:17] LABS: PLATELET COUNT 162 10^3/uL (150-400)
[2018-05-24] MEDS ORDERED: LORazepam 2 MG/ML INJ IVP ONE (15:44)
[2018-05-24] MEDS ORDERED: ONDANSETRON DISINTEGRATING 4 MG TAB PO PRN (16:23)
[2018-05-24] MEDS ORDERED: ACETAMINOPHEN 325 MG TAB PO PRN (16:23)
[2018-05-24] MEDS ORDERED: QUEtiapine FUMARATE 25 MG TAB PO PRN ×2 (17:03→21:00)
[2018-05-24] MEDS ORDERED: FLUMAZENIL 0.5 MG/5 ML MDV IVP PRN (17:04)
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
[2018-05-24] MEDS: NICOTINE 21 MG/24 HR PATCH TD SCH (17:34)
[2018-05-24] MEDS: 1/2 NS 1,000 ML IV SCH (17:39)
[2018-05-24] MEDS: THIAMINE HCL 500 MG in NS 100 ML IV SCH (17:49)
[2018-05-24] MEDS: ONDANSETRON 4 MG/2 ML VIAL IVP PRN (20:28)
[2018-05-24] MEDS: FLUTICASONE NASAL 120 SPRAYS/16 GM MDI EACHNARE SCH (20:32)
[2018-05-24] MEDS ORDERED: busPIRone 10 MG TAB PO SCH (21:00)
[2018-05-24] MEDS ORDERED: TOPIRAMATE 25 MG TAB PO SCH (21:00)
[2018-05-24] MEDS ORDERED: QUEtiapine FUMARATE 100 MG TAB PO SCH (21:00)
[2018-05-24] MEDS: GABAPENTIN 300 MG CAP PO SCH (21:02)
[2018-05-24] MEDS: busPIRone 10 MG TAB PO SCH (21:02)
[2018-05-24] MEDS: QUEtiapine FUMARATE 100 MG TAB PO SCH (21:03)
[2018-05-24] MEDS: TOPIRAMATE 25 MG TAB PO SCH (21:04)
--- NOTE | 2018-05-24 21:19 | CPEKG ---
Test Reason : OPEN Blood Pressure : / mmHG Vent. Rate : 107 BPM Atrial Rate : 107 BPM P-R Int : 144 ms QRS Dur : 101 ms QT Int : 343 ms P-R-T Axes : 039 080 057 degrees QTc Int : 458 ms Sinus tachycardia Confirmed by Digna Fermin ([id number]) on 05/24/2018 9:19:02 PM Referred By: Confirmed By:Digna Fermin
[2018-05-24] MEDS: PROMETHAZINE HCL 25 MG/ML INJ IVP PRN (22:27)
[2018-05-25] MEDS: ONDANSETRON 4 MG/2 ML VIAL IVP PRN ×2 (00:35→07:50)
[2018-05-25] MEDS: LORazepam 2 MG/ML INJ IVP PRN ×7 (00:35→20:16)
[2018-05-25] MEDS ORDERED: HALOPERIDOL LACT 5 MG/ML INJ IVP ONE (01:12)
[2018-05-25] MEDS: 1/2 NS 1,000 ML IV SCH (02:28)
[2018-05-25] MEDS: busPIRone 10 MG TAB PO SCH ×2 (08:03→20:08)
[2018-05-25] MEDS: GABAPENTIN 300 MG CAP PO SCH ×3 (08:03→20:08)
[2018-05-25] MEDS: TOPIRAMATE 25 MG TAB PO SCH ×2 (08:03→20:09)
[2018-05-25] MEDS: NICOTINE 21 MG/24 HR PATCH TD SCH (08:03)
--- NOTE | 2018-05-25 08:46 | PDMN ---
Medical Necessity Medical necessity: M595 Substance Related Disorders: 27 y/o in acute alcohol w/d , CIWA 6 on arrival, HR 130s-140s, + for tremors, N/V, IV fluids started and IV antiemetics , anticipate w/d will escalate, CIWA protocol initiated, may require precedex if w/d escalates, CM consult, pt with hx epilepsy, schizophrenia and/or bipolar disorder, Disposition SDU, inpatient, anticipate> 48 hrs hospitalization for ongoing management of acute etoh w/d.
[2018-05-25] MEDS: D5W 1/2 NS W/ 20 KCl/L 1,000 ML IV SCH ×2 (08:54→18:45)
[2018-05-25] MEDS: THIAMINE HCL 500 MG in NS 100 ML IV SCH (08:54)
[2018-05-25] MEDS ORDERED: FOLIC ACID 1 MG TAB PO SCH (09:00)
[2018-05-25] MEDS: FLUTICASONE NASAL 120 SPRAYS/16 GM MDI EACHNARE SCH (09:00)
[2018-05-25] MEDS: PROMETHAZINE HCL 25 MG/ML INJ IVP PRN (10:14)
--- NOTE | 2018-05-25 10:23 | ASMTCMCOM ---
CM Note CM Note Notes: Late Entry from 05/24/18 due to [employer] being down: Pt presented to the ED via EMS for ETOH withdrawal symptoms. Pt was in the ED 05/20/18 and CM visited w/him and his mother, Khadijah, at that time (see CM Report from that visit). Pt stated he did not follow through w/that DC plan and never took the librium but continued to drink instead. Pt stated he has been trying to gradually reduce his amount everyday. Spoke w/pt and he states he is not interested in going to [facility], [facility] or [facility]. Pt states his parents do not know that he is here because they are at a beer festival. Pt does not want them contacted at this time. Pt requesting admission to the hospital for ETOH detox; pt was initially rather medically stable and reminded of his acute detox options ([facility], [facility], [facility]). Patient continued to refuse to go to those options and eventually his W/D symptoms worsened to a point that required admission. Pt has a history of bipolar and schizoaffective disorders, and epilepsy. Pt is followed by P (therapist is Joaquín and psychiatrist is Dr Chang). Pt's PCP is Dr Rodgers. Pt was also admitted 03/27-03/28 for ETOH W/D. See CM Report on 03/28/18. Pt has been provided numerous and various substance abuse treatment resources. CM to follow. Date Signed: 05/25/2018 10:22 AM Electronically Signed By:Dang Dooley RN
--- NOTE | 2018-05-25 10:25 | ASMTLACE ---
DREW Acuity / Level of Answers: Yes Care: Did the patient have an inpatient admission? Comorbidities - select Answers: Other Notes: Epilepsy all that apply # of Emergency department Answers: 3-4 visits in the last 6 months Social determinants Answers: History of substance abuse (ETOH, street drugs, prescription drugs, etc.) Mental health diagnosis (anxiety, depression, pers onality disorders, etc.) Score: 13 Date Signed: 05/25/2018 10:24 AM Electronically Signed By:Dang Dooley RN
--- NOTE | 2018-05-25 14:08 | GCON ---
CRITICAL CARE CONSULTATION DATE OF CONSULTATION: 05/25/2018 HISTORY OF PRESENT ILLNESS: This patient is a 27-year-old male with history of alcohol abuse and psy chiatric disorders, who has failed detox as an outpatient multiple times in the past, has had several hospital and/or emergency room visits over the last couple months, including March 27, as well as May 4, and he presented to the emergency department complaining of symptoms of alcohol withdrawal. He has had seizures in the past and withdrawal in the past and reports drinking 20 shots of vodka d aily, but his seizures have been well controlled. He is unemployed and refused transfer to the [facility], and was therefore admitted for withdrawal. REVIEW OF SYSTEMS: Otherwise negative. PAST MEDICAL HISTORY: Includes: Bipolar disorder, schizoaffective disorder, alcohol dependence, and seizure disorder. The etiology is not quite clear to me. PAST SURGICAL HISTORY: Includes: Only adenoidectomy. He has a family history of alcohol problems. SOCIAL HISTORY: He is a current smoker. The alcohol quantity is described above. HOME MEDICATIONS: Include: Neurontin, Seroquel, Topamax, BuSpar, Nasacort. PHYSICAL EXAM: VITAL SIGNS: He was afebrile. His blood pressure was 131/86, heart rate 105, respir ations 15, oxygen saturation 93% on room air. GENERAL: He was awake, alert, very pleasant, cooperat franck, in no apparent distress. Not diaphoretic. He did speak fairly quietly. HEENT: Pupils equally round and reactive to light. Nonicteric and noninjected. Mucous membranes moist without erythema o r exudate. NECK: Supple without adenopathy or jugular vein distention. RESPIRATORY: Breath sounds were clear to auscultation bilaterally without wheezes, rubs, or rales. HEART: Regular rate and rh ythm without murmurs, rubs, gallops. ABDOMEN: Soft, nontender, nondistended without hepatosplenomeg myron. EXTREMITIES: No clubbing, cyanosis, or edema. NEUROLOGIC: Nonfocal, including cranial nerves , deep tendon reflexes. SKIN: Warm and dry, without evidence of rash. OBJECTIVE DATA: Includes a white count of 6.2, hematocrit of 47, platelets of 162. Basic metabolic panel was unremarkable. Transaminases were slightly elevated with an AST of 82, ALT of 95, alkaline phosphatase, and total bilirubin were normal. Urine tox was negative except for a blood alcohol leve l of 292. ASSESSMENT AND PLAN: Alcohol intoxication and possible withdrawal. He has been treated with a [facility] Withdrawal Assessment protocol to date. He is doing fairly well. His scores are comin g down. He is only getting Ativan every 4 hours, seems to be working quite well. He could escalate, though he is showing signs of improvement rather than deterioration at this point; so, we will amalia liana to watch him in the HEVER today, and I did discuss with him alternatives to alcohol control includi Alcoholics Anonymous. He said he was recently referred to [facility], but has not yet followed through with that. I also mentioned [facility] as possibilities to pursue. At the moment, ousmane nolan will continue his observation. /[id number]/MODL
--- NOTE | 2018-05-25 17:22 | ASMTCMCOM ---
CM Note CM Note Notes: Parents interested in ETOH Tx options for patient. Left resources to contact in patient room and suggested that he look through and be involved in tx. Date Signed: 05/25/2018 05:22 PM Electronically Signed By:Sandra Arita LCSW
--- NOTE | 2018-05-25 19:02 | HOSPPROG ---
Hospitalist Progress Note Assessment/Plan: Assessment: 27 yo M p/w acute alcohol withdraw Plan: # Alcohol use disorder (binge x 2 weeks) w/ acute withdrawal. Initial BAL 292, so anticipate that withdraw will escalate over these next 24hrs -cont CIWA w/ PRN ativan, currently on high requirements but not requiring precedex -ongoing sinus tach (on EKG, personally interpreted) -d/w Dr. Be on rounds, we agreed to keep in SDU x additional 24hrs, reassess for med surg status at that time # Chronic Epilepsy. No seizures, cont topamax and gabapentin # Schizoaffective disorder. Chronic, adherent to Rx, cont seroquel -patient reports he needs more structure in his life to avoid vulnerability to alcohol, recommend SW review his current/potential resources # Transaminitis. Likely 2/2 2 weeks of alcohol usage, no hepatitis on physical exam today -trend Diet. Regular PPx. High risk, lovenox 40 Code. Full Dispo. ADD uncertain, withdraw unresolved. High risk patient for worsening morbidity 2/2 issues outlined above. Subjective: feels anxious, tremulous Objective: Vital Signs Temp Pulse Resp BP Pulse Ox 37.1 C 112 H 18 136/92 H 93 05/25/18 16:00 05/25/18 16:00 05/25/18 16:00 05/25/18 16:00 05/25/18 16:00 Laboratory Results 05/25/18 05:32 05/24/18 05/25/18 05/26/18 05:59 05:59 05:59 Intake Total 6043 1960 Output Total 10 Balance 6043 1950 - Physical Exam Constitutional: no apparent distress, not in pain, uncomfortable, unkempt Eyes: other (dilated pupils bilat) Cardiovascular: tachycardia, No systolic murmur, No irregularly irregular, No edema Respiratory: no respiratory distress, no rales or rhonchi, clear to auscultation Gastrointestinal: normoactive bowel sounds, soft, non-tender abdomen, no palpable masses, No distension Neurologic: AAOx3, other (bilat UE tremulousness), No asterixes Psychiatric: not encephalopathic, thought process linear, anxious, No agitated ICD10 Worksheet Patient Problems: Problems Problem Status Onset Alcohol withdrawal Acute Alcohol dependence Acute Alcohol withdrawal without perceptual disturbances Acute
[2018-05-25] MEDS ORDERED: ENOXAPARIN 40 MG/0.4 ML SYR SC SCH (19:15)
[2018-05-25 20:06] VITALS: BP 133/88
[2018-05-25] MEDS: QUEtiapine FUMARATE 100 MG TAB PO SCH (20:09)
[2018-05-25] MEDS ORDERED: NICOTINE POLACRILEX 2 MG GUM B PRN (22:17)
[2018-05-27] MEDS ORDERED: THIAMINE HCL 100 MG TAB PO SCH (09:00)
== END 2018-05-25 22:45 | disposition left against medical advice (07) | DRG 894 ==
LOC: EDUNIT# → F2N 16:49
PROVIDERS: ADMIT Hospitalist; ATTEND Hospitalist
DX: F10.230 Alcohol dependence with withdrawal, uncomplicated (principal); F10.229 Alcohol dependence with intoxication, unspecified; Y90.8 Blood alcohol level of 240 mg/100 ml or more; E86.9 Volume depletion, unspecified; G40.909 Epilepsy, unspecified, not intractable, without status epilepticus; F20.9 Schizophrenia, unspecified; F31.9 Bipolar disorder, unspecified
CPT/HCPCS: 80305; 96374; G0480; J1630; J1650; J2060; J2405; J2550; J3411